=== PATIENT | male | born 1950 | race American Indian/Alaskan Native ===

== ENCOUNTER 2018-09-22 09:45 | Outpatient (CLI) | payer MEDICARE ==
[2018-09-22 11:10] LABS: Basophils # (Auto) 0.1 K/mm3 (0.0-0.1); Basophils % (Auto) 1.5 % (0.0-1.8); Eosinophils # (Auto) 0.1 K/mm3 (0.0-0.4); Eosinophils % (Auto) 2.5 % (0.0-4.3); Hematocrit 42.5 % (35.5-45.6); Lymphocytes # (Auto) 1.7 K/mm3 (1.2-5.4); Lymphocytes % (Auto) 39.8 % (13.4-35.0); Mean Corpuscular HGB Conc 33 % (32-34); Mean Corpuscular Volume 93 fl (84-94); Monocytes # (Auto) 0.4 K/mm3 (0.0-0.8); Monocytes % (Auto) 9.4 % (0.0-7.3); Platelet Count 358 K/mm3 (140-440); Red Cell Distribution Width 14.7 % (13.2-15.2)
[2018-09-22 11:26] LABS: Alanine Aminotransferase 12 units/L (7-56); Albumin 4.1 g/dL (3.9-5); BUN/Creatinine Ratio 11; Blood Urea Nitrogen 9 mg/dL (9-20); Calcium 8.8 mg/dL (8.4-10.2); HDL Cholesterol 53 mg/dL (40-59); Hemolysis Index 5; LDL Cholesterol,Direct 109 mg/dL (50-130)
== END 2018-09-22 09:46 | disposition home or self-care (01) ==
LOC: LAB 09:45
PROVIDERS: ATTEND Internal Medicine
DX: I71.4 Abdominal aortic aneurysm, without rupture (principal); I10 Essential (primary) hypertension; E78.49 Other hyperlipidemia; R97.20 Elevated prostate specific antigen [PSA]; K21.9 Gastro-esophageal reflux disease without esophagitis; Z87.891 Personal history of nicotine dependence
CPT/HCPCS: 36415; 80053; 80061; 82306; 82607; 85025

== ENCOUNTER 2018-10-11 08:58 | Outpatient (CLI) | payer MEDICARE ==
--- NOTE | 2018-10-12 07:27 | Ultrasound Report ---
PROCEDURE: US AORTA SCAN (AAA) TECHNIQUE: Multiple transverse and longitudinal images of the abdominal aorta were obtained. Duplex Doppler evaluation of the aorta with color flow was performed. Measurements of the maximum cross-se ctional diameter were made. HISTORY: AORTIC/RETRO, ABDOMINAL AORTIC ANEURYSM WITHOUT RUPTURE COMPARISONS: None . FINDINGS: Upper aortic maximum dimension: 2.65 cm. Infrarenal maximum aortic dimension: 2.12 cm. Stenosis: None Occlusion or thrombosis: None Color flow: Normal Right Iliac diameter: 1.23 cm. Left Iliac diameter: 1.14 cm. There is an abdominal aortic stent graft which is patent. IMPRESSION: There is no aortic aneurysm or stenosis. This document is electronically signed by Kevan Elaine MD., October 12 2018 07:25:54 AM ET
== END 2018-10-11 08:59 | disposition home or self-care (01) ==
LOC: US 08:58
PROVIDERS: ATTEND Internal Medicine
DX: I71.4 Abdominal aortic aneurysm, without rupture (principal); I10 Essential (primary) hypertension; K21.9 Gastro-esophageal reflux disease without esophagitis; Z87.891 Personal history of nicotine dependence
CPT/HCPCS: 76775

== ENCOUNTER 2019-04-06 09:20 | Outpatient (CLI) | payer MEDICARE ==
[2019-04-11 11:09] LABS: Vitamin D, 25-OH, D2 <4 ng/mL
== END 2019-04-06 09:21 | disposition home or self-care (01) ==
LOC: LAB 09:20
PROVIDERS: ATTEND Internal Medicine
DX: Z13.1 Encounter for screening for diabetes mellitus (principal); E55.9 Vitamin D deficiency, unspecified; I10 Essential (primary) hypertension; K21.9 Gastro-esophageal reflux disease without esophagitis; F17.200 Nicotine dependence, unspecified, uncomplicated
CPT/HCPCS: 36415; 82306; 83036; 84443

== ENCOUNTER 2019-12-11 10:20 | Outpatient (CLI) | payer MEDICARE ==
--- NOTE | 2019-12-11 11:16 | XRay Report ---
LEFT HIP 2 VIEWS INDICATION: PAIN IN LEFT HIP. COMPARISON: None. IMPRESSION: No acute osseous or soft tissue abnormality. No significant DJD. Signer Name: Luigi Streeter Jr, MD Signed: 12/11/2019 11:12 AM Workstation Name: [id number]
== END 2019-12-11 10:21 | disposition home or self-care (01) ==
LOC: XRAY 10:20
PROVIDERS: ATTEND Internal Medicine
DX: M25.552 Pain in left hip (principal)